=== PATIENT | female | born 1990 | race Two or more races ===

== ENCOUNTER 2024-10-22 01:31 | Emergency (ER) | payer MEDICAID, OTHER ==
[~2024-10-22] VITALS: Ht 160 cm; Wt 72.0 kg
[2024-10-22 02:38] LABS: Hematocrit 38.4 % (36.0-46.0); Hemoglobin 12.9 g/dL (12.2-16.2); Mean Corpuscular Hemoglobin 28.2 pg (28.0-32.0); Mean Corpuscular Volume 83.5 fL (80.0-100.0); Nucleated Red Blood Cells % 0.0 %
[2024-10-22 02:58] LABS: Alanine Aminotransferase 16 U/L (7-40); Albumin 4.3 g/dL (3.2-4.8); Alkaline Phosphatase 79 U/L (46-116); Anion Gap 9 (5-15); BUN/Creatinine Ratio 6.8 (10.0-20.0); Bilirubin, Total 0.4 mg/dL (0.2-1.0); Calcium 8.7 mg/dL (8.7-10.4); Carbon Dioxide 23 mmol/L (20-31); Chloride 106 mmol/L (98-107); Glucose 96 mg/dL (74-106); Potassium 3.6 mmol/L (3.5-5.1); Sodium 138 mmol/L (136-145); Total Protein 7.0 g/dL (5.7-8.2)
--- NOTE | 2024-10-22 03:01 | ED.PDOC ---
GI ASSESSMENT HPI Comments HPI: 34 year old female presents to the emergency department with a chief complaint of abdominal pain onset 2 hour prior to ED arrival. Patient states she has been experiencing RLQ pain, suprapubic pain, describes pain as constant, sharp and pressure sensation. Denies dysuria, hematuria, dizziness, nausea, vomiting, diar shiva, vaginal discharge, fevers, chills, nausea, vomiting, diarrhea. No other symptoms or modifying factors present at this time. Initial Vitals BP: 148/82 HR: 78 RR: 20 O2: 98% Temp: 98.3. F Past Medical History:Denies Past Surgical History: Social History: Denies ETOH, smoking, and drug use. Medications:Denies Allergies: JULIETTE VALVERDE: Jojo: HPI: Poor Historian. Past Medical History: Past Surgical History: REVIEW OF SYSTEMS: CONSTITUTIONAL: Denies acute: fever, diaphoresis, chills, generalized weakness HEAD: Denies acute: headache, photophobia Eyes: Denies acute: Double vision, vision loss, eye pain, eye discharge. EARS: Denies acute: tinnitus, hearing loss, ear discharge, ear pain, THROAT: Denies acute: sore throat, swelling, difficulty swallowing , pain with swallowing, change in voice. NECK: Denies acute: neck pain, neck swelling, stiff neck. HEART: Denies acute : chest pain, palpitations, LUNGS: Denies acute: SOB, wheezing, cough, hemoptysis ABDOMEN: Denies acute: Nausea, Vomiting, diarrhea, melena , hematemesis, hematochezia SKIN: Denies acute: rash, redness, lesions, itchiness. EXTREMITIES: Denies acute: calf pain, numbness, tingling, weakness, denies pain in extremity. Denies acute: Low back pain. Neuro: Denies acute: focal neurological deficit, motor or sensory focal neurological deficit, tremors, seizure like activity, confusion, dizziness, change in mental status, loss of bowel or bladder function, cauda equina like symptoms. : Denies acute: dysuria, hematuria, flank pain, increase in urinary frequency. PSYCH: Denies acute: hallucination, suicidal ideation, homicidal ideation. FEMALE: Denies acute: abnormal vaginal bleeding, foul odor, unusual discharge. PHYSICAL EXAM: General: ----idmh-af-invdaoad----acute distress, awake and alert. Head: normocephalic, atraumatic. Neck: supple, trachea is midline, no swelling. Throat: Normal phonation. Eyes:, no erythema, no purulent discharge, no proptosis, no icterus. Heart: regular rate, regular rhythm, no significant murmur appreciated. Lungs: no apparent respiratory distress, Able to speak in full sentences. No wheezing, no rhonchi, no crackles. No stridors Clear to auscultation bilaterally. Abdomen: Suprapubic and right lower quadrant tender to palpation, non distended, soft, no guarding, no rebound, + bowel sounds. Neuro: Awake, Alert, oriented to name, self, situation, follows commands GCS=15. Speech is normal. Skin: no petechia, no purpura, no cyanosis, non-pale, not jaundice. Lower extremities: --no - Pitting edema no deformity, no focal swelling, no calf TTP. Makes eye contact. moves all four extremities. Face: no apparent facial droop. Ambulating in the ED independently. ED COURSE: DISCLAIMER: This medical document was created using an electronic medical record system with voice recognition software and computerized dictation system. Although this document has been carefully reviewed, there might still be some phonetic and typographical errors. Occasional wrong-word or "sound-alike" substitutions may have occurred due to the inherent limitations of voice recognition software. These areas are purely typographical due to imperfections of the software programs and do not reflect any compromise in the patient's medical care. Please read the chart carefully and recognize, using context, where these substitutions have occurred. Chief Complaint: Abdominal Pain Time Seen by MD: 02:50 Reviewed Notes: Medications Allergies: Coded Allergies: NO KNOWN ALLERGIES (Unverified , 10/22/24) Home Meds Active Scripts Cephalexin Monohydrate (Cephalexin) 500 Mg Tab, 1 TAB PO TID for 7 Days, #21 TAB Prov:MARQUIS ANSARI DO 10/22/24 Information Source: Patient Mode of Arrival: Ambulatory Timing: Hours Duration: Since onset Prehospital treatment: None Quality: Sharp Vomitus: None Severity: Moderate Recent: None Recent Hx of: None Pain Location: RLQ, Suprapubic Modifying Factors: Nothing Associated sign and symptoms: Abdominal Pain Past Medical History PAST MEDICAL HISTORY: Denies Surgical History: [employer] History: No Pertinent [employer] History Family History Family History: Reviewed,noncontributory to illness, No family hx of Cancer, No family hx of DM, No family hx of Heart jesenia, No family hx of HTN, No family hx ofKidney jesenia, No family hx of Liver jesenia, No family hx of Lung jesenia, No family hx of Stroke Social History Smoker: Non-Smoker Alcohol: Denies ETOH Use Drugs: Denies Drug Use Lives In: Home Was a procedure done? Was a procedure done?: No X-Ray, Labs, Meds, VS Vital Signs Date Time Temp Pulse Resp B/P (MAP) Pulse Ox O2 Delivery O2 Flow Rate FiO2 10/22/24 06:14 98.2 64 16 109/73 (85) 100 98.2 10/22/24 04:06 98.2 67 16 100/62 (75) 98 98.2 10/22/24 01:33 98.3 78 20 148/82 98 98.3 Lab Test 10/22/24 02:23 10/22/24 02:07 Range/Units Urine Color Colorless Yellow Urine Clarity Turbid H Clear Urine pH 5.5 5.0-9.0 Urine Specific Datil 1.021 1.001-1.035 Urine Protein Trace H Negative Urine Ketones Negative Negative Urine Blood 2+ H Negative /uL Urine Nitrite Negative Negative Urine Bilirubin Negative Negative Urine Urobilinogen Normal Negative mg/dL Urine Leukocyte Esterase 3+ Negative /uL Urine RBC 6 0 - 4 /hpf Urine Microscopic WBC 20 H 0-5 /HPF Urine Squamous Epithelial Cells Many <5 /hpf Urine Bacteria None seen None Seen /hpf Urine Mucus Few None Seen Urine Glucose Normal Normal mg/dL Urine Test Negative Negative White Blood Count 11.9 H 4.4-10.8 10^3/uL Red Blood Count 4.59 4.0-5.20 10^6/uL Hemoglobin 12.9 12.2-16.2 g/dL Hematocrit 38.4 36.0-46.0 % Mean Corpuscular Volume 83.5 80.0-100.0 fL Mean Corpuscular Hemoglobin 28.2 28.0-32.0 pg Mean Corpuscular Hemoglobin Concent 33.7 32.0-36.0 g/dL Red Cell Distribution Width 13.6 11.8-14.3 % Platelet Count 277 140-450 10^3/uL Mean Platelet Volume 8.8 6.9-10.8 fL Neutrophils (%) (Auto) 63.6 37.0-80.0 % Lymphocytes (%) (Auto) 30.2 10.0-50.0 % Monocytes (%) (Auto) 4.5 0.0-12.0 % Eosinophils (%) (Auto) 1.2 0.0-7.0 % Basophils (%) (Auto) 0.5 0.0-2.0 % Neutrophils # (Auto) 7.6 1.6-8.6 10 ^3/uL Lymphocytes # (Auto) 3.6 0.4-5.4 10 ^3/uL Monocytes # (Auto) 0.5 0-1.3 10 ^3/uL Eosinophils # (Auto) 0.1 0-0.8 10 ^3/uL Basophils # (Auto) 0.1 0-0.2 10 ^3/uL Nucleated Red Blood Cells 0.0 % Sodium Level 138 136-145 mmol/L Potassium Level 3.6 3.5-5.1 mmol/L Chloride Level 106 98-107 mmol/L Carbon Dioxide Level 23 20-31 mmol/L Anion Gap 9 5-15 Blood Urea Nitrogen 5 L 9-23 mg/dL Creatinine 0.74 0.550-1.02 mg/dL Glomerular Filtration Rate Calc 108 >90 mL/min BUN/Creatinine Ratio 6.8 L 10.0-20.0 Serum Glucose 96 74-106 mg/dL Lactic Acid Level 0.9 0.4-2.0 mmol/L Calcium Level 8.7 8.7-10.4 mg/dL Total Bilirubin 0.4 0.2-1.0 mg/dL Aspartate Amino Transferase (AST) 15 13-40 U/L Alanine Aminotransferase (ALT) 16 7-40 U/L Alkaline Phosphatase 79 46-116 U/L Total Protein 7.0 5.7-8.2 g/dL Albumin 4.3 3.2-4.8 g/dL Current Medications Medications (Trade) Dose Ordered Sig/Terry Route Start Time Stop Time Status Last Admin Sodium Chloride 1,000 ml @ 1,000 mls/hr Q1H ONCE IV 10/22/24 02:00 10/22/24 02:59 DC 10/22/24 06:10 Acetaminophen/ Hydrocodone Bitart ([place] 5/325MG Tab) 1 tab ONCE ONCE PO 10/22/24 04:00 10/22/24 04:01 DC 10/22/24 06:10 Ceftriaxone Sodium 50 ml @ 100 mls/hr ONCE ONCE IV 10/22/24 05:30 10/22/24 05:59 DC 10/22/24 06:10 Ketorolac Tromethamine (Toradol Injection) 30 mg ONCE ONCE IV 10/22/24 06:00 10/22/24 06:06 DC 10/22/24 06:11 [place] [address] Ph: [phone] DIAGNOSTIC IMAGING Diagnostic Imaging Report : [id number] Signed PATIENT: JOJO VALVERDE ACCT: [id number] UNIT: [id number] : 1990 LOC: ER ROOM / BED: / AGE / SEX: 34 / F ADM STATUS: REG ER SERVICE 0158 ORDERING PHYSICIAN: MARQUIS ANSARI DO PROCEDURE(s): ABPL - CT AB PEL WO CON-NO ORAL OR IV REASON: pelvic pain ORDER NUMBER(s): [id number], ACCESSION NUMBER(s): [id number] Exam: CT CT AB PEL WO CON-NO ORAL OR IV History: pelvic pain Comparison Study: US PELVIC on DOS: 10/22/24 TECHNIQUE: Multidetector CT of the abdomen was performed from lung bases to pubic symphysis. Imaging was performed without IV contrast. Axial, coronal and sagittal multiplanar reformats were obtained from the axial data set by the technologist. Radiation Dose Information: Dose-length product is 448.57 mGy*cm FINDINGS: Limited sections of the lung bases demonstrate no focal pulmonary mass. The liver, spleen, pancreas, and both adrenal glands demonstrate no acute findings. The gallbladder is surgically removed The stomach is unremarkable. The small bowel loops are not dilated. The appendix is not clearly identified, although there are no secondary signs of appendicitis. No colonic obstruction. Bilateral kidneys are unremarkable. No hydronephrosis. The urinary bladder is partially distended. No significant lymphadenopathy. Scattered pelvic free fluid. No free air. Heterogenous, inflamed right adnexal mass measuring 6.4 x 5.1 cm may reflect a tubo-ovarian abscess versus hemorrhagic cyst. Simple cyst within the left ovary measuring 2.1 cm. IUD is noted in appropriate position. The aorta and IVC demonstrate no acute findings. Visualized osseous structures demonstrate no acute abnormality. IMPRESSION: 1. Heterogenous, inflamed right adnexal mass measuring 6.4 x 5.1 cm may reflect a tubo-ovarian abscess versus hemorrhagic cyst. Scattered pelvic free fluid. Together ruptured hemorrhagic cyst is highly considered. 2. IUD is noted in appropriate position. ATED BY: RUSS DAVIS MD DICTATED DATE/TIME: 10/22/24505 SIGNED BY: RUSS DAVIS MD SIGNED DATE/TIME: 10/22/24505 CC: [place] [address] Ph: [phone] DIAGNOSTIC IMAGING Diagnostic Imaging Report : [id number] Signed PATIENT: JOJO VALVERDE ACCT: [id number] UNIT: [id number] : 1990 LOC: ER ROOM / BED: / AGE / SEX: 34 / F ADM STATUS: REG ER SERVICE 0158 ORDERING PHYSICIAN: MARQUIS ANSARI DO PROCEDURE(s): PELUS - PELVIC REASON: pelvic pain ORDER NUMBER(s): [id number], ACCESSION NUMBER(s): [id number] INDICATION: pelvic pain TECHNIQUE: Multiple real-time grayscale transabdominal sonographic images along with color and duplex Doppler of the uterus and ovaries were obtained. COMPARISON: None FINDINGS: Uterus measures 11.8 x 7.7 x 5.0 cm. Endometrium measures 5.9 mm. IUD is noted within the uterus within the endometrial cavity in appropriate position. Free fluid is noted within the cul-de-sac. Right ovary measures 5.5 x 4.7 x 8.2 cm and left ovary measures 2.7 x 3.3 x 3.0 cm. Right ovarian complex cyst measuring 3.6 x 2.4 x 4.0 cm likely reflecting hemorrhagic cyst/ corpus luteal cyst. Left ovarian simple cyst measuring 1 x 1.0 x 1.3 cm. Normal vascular flow within bilateral ovaries. IMPRESSION: 1. IUD in appropriate position. 2. Right ovarian corpus luteal/ hemorrhagic cyst. 3. Left ovarian simple cyst. 4. no acute ovarian torsion at this time. ATED BY: RUSS DAVIS MD DICTATED DATE/TIME: 10/22/24338 SIGNED BY: RUSS DAVIS MD SIGNED DATE/TIME: 10/22/24338 CC: Time of 1ST Reevaluation: 03:20 Reevaluation 1ST: Unchanged Time of 2ND Reevaluation: 05:26 (The case was discussed with the [facility] on- call team (HPI, physical exam, labs and diagnostic tests that were available at the time of disposition, ED course, treatment plan) on the phone. They recommend outpatient follow up and pain control. No further intervention needed. I specifically communicated the CT scan findings of possible tubo- ovarian abscess versus hemorrhagic cyst. Dr. Trujillo. ) Patient Education/Counseling: Diagnosis, Treatment Family Education/Counseling: Diagnosis, Treatment Departure 1 Departure Time of Disposition: 03:57 Impression: Primary Impression: Hemorrhagic cyst of right ovary Additional Impression: UTI (urinary tract infection) Qualified Codes: N39.0 - Urinary tract infection, site not specified Disposition: HOME / SELF CARE / HOMELESS Condition: Stable Additional Instructions: Additional instructions: You MUST follow-up with your primary care/family doctor in 1 to 2 days. If you are unable to see your primary care/family doctor, please return to our emergency room for re-assessment and re-evaluation in 1 to 2 days. Return to the emergency room here in our facility or to the nearest ER [facility] if your symptoms change or worsen. CONSULTATIONS: you MUST Follow-up for consultation as soon as possible with: -[facility] doctor in 1-2 days. Please call for appointment You MUST call the consultants office yourself to make an appointment. You may need to arrange that through your insurance and/or your primary/family doctor. If you are unable to see the talent consultant in 1 to 2 days, you must return to our emergency room (or any other ER of your choice) for re-assessment and re- evaluation. Adequate fluid hydration. Absolute pelvic rest. Below is a copy of your radiological report for follow up: [facility] [address] [facility] [address] Ph: [phone] DIAGNOSTIC IMAGING Diagnostic Imaging Report : [id number] Signed PATIENT: JOJO VALVERDE ACCT: [id number] UNIT: [id number] : 1990 LOC: ER ROOM / BED: / AGE / SEX: 34 / F ADM STATUS: REG ER SERVICE 0158 ORDERING PHYSICIAN: MARQUIS ANSARI DO PROCEDURE(s): ABPL - CT AB PEL WO CON-NO ORAL OR IV REASON: pelvic pain ORDER NUMBER(s): [id number], ACCESSION NUMBER(s): [id number] Exam: CT CT AB PEL WO CON-NO ORAL OR IV History: pelvic pain Comparison Study: US PELVIC on DOS: 10/22/24 TECHNIQUE: Multidetector CT of the abdomen was performed from lung bases to pubic symphysis. Imaging was performed without IV contrast. Axial, coronal and sagittal multiplanar reformats were obtained from the axial data set by the technologist. Radiation Dose Information: Dose-length product is 448.57 mGy*cm FINDINGS: Limited sections of the lung bases demonstrate no focal pulmonary mass. The liver, spleen, pancreas, and both adrenal glands demonstrate no acute findings. The gallbladder is surgically removed The stomach is unremarkable. The small bowel loops are not dilated. The appendix is not clearly identified, although there are no secondary signs of appendicitis. No colonic obstruction. Bilateral kidneys are unremarkable. No hydronephrosis. The urinary bladder is partially distended. No significant lymphadenopathy. Scattered pelvic free fluid. No free air. Heterogenous, inflamed right adnexal mass measuring 6.4 x 5.1 cm may reflect a tubo-ovarian abscess versus hemorrhagic cyst. Simple cyst within the left ovary measuring 2.1 cm. IUD is noted in appropriate position. The aorta and IVC demonstrate no acute findings. Visualized osseous structures demonstrate no acute abnormality. IMPRESSION: 1. Heterogenous, inflamed right adnexal mass measuring 6.4 x 5.1 cm may reflect a tubo-ovarian abscess versus hemorrhagic cyst. Scattered pelvic free fluid. Together ruptured hemorrhagic cyst is highly considered. 2. IUD is noted in appropriate position. ATED BY: RUSS DAVIS MD DICTATED DATE/TIME: 10/22/24505 SIGNED BY: RUSS DAVIS MD SIGNED DATE/TIME: 10/22/24505 CC: [place] [address] Ph: [phone] DIAGNOSTIC IMAGING Diagnostic Imaging Report : [id number] Signed PATIENT: JOJO VALVERDE ACCT: [id number] UNIT: [id number] : 1990 LOC: ER ROOM / BED: / AGE / SEX: 34 / F ADM STATUS: REG ER SERVICE 7 ORDERING PHYSICIAN: MARQUIS ANSARI DO PROCEDURE(s): PELUS - PELVIC REASON: pelvic pain ORDER NUMBER(s): [id number], ACCESSION NUMBER(s): [id number] INDICATION: pelvic pain TECHNIQUE: Multiple real-time grayscale transabdominal sonographic images along with color and duplex Doppler of the uterus and ovaries were obtained. COMPARISON: None FINDINGS: Uterus measures 11.8 x 7.7 x 5.0 cm. Endometrium measures 5.9 mm. IUD is noted within the uterus within the endometrial cavity in appropriate position. Free fluid is noted within the cul-de-sac. Right ovary measures 5.5 x 4.7 x 8.2 cm and left ovary measures 2.7 x 3.3 x 3.0 cm. Right ovarian complex cyst measuring 3.6 x 2.4 x 4.0 cm likely reflecting hemorrhagic cyst/ corpus luteal cyst. Left ovarian simple cyst measuring 1 x 1.0 x 1.3 cm. Normal vascular flow within bilateral ovaries. IMPRESSION: 1. IUD in appropriate position. 2. Right ovarian corpus luteal/ hemorrhagic cyst. 3. Left ovarian simple cyst. 4. no acute ovarian torsion at this time. ATED BY: RUSS DAVIS MD DICTATED DATE/TIME: 10/22/24338 SIGNED BY: RUSS DAVIS MD SIGNED DATE/TIME: 10/22/24338 CC: e-Prescriptions Cephalexin Monohydrate (Cephalexin) 500 Mg Tab 1 TAB PO TID for 7 Days, #21 TAB Prov: LAKESHA ANSARICorwin Del Castillo DO 10/22/24 Discharged With: Self Critical Care Note Critical Care Time?: No I personally scribed for MARQUIS ANSARI DO ([email or web address]) on 10/22/24 at 03:01. Electronically submitted by Batool Howe ([email or web address]). I personally scribed for MARQUIS ANSARI DO ([email or web address]) on 10/22/24 at 03:05. Electronically submitted by Batool Howe ([email or web address]). I personally scribed for MARQUIS ANSARI DO ([email or web address]) on 10/22/24 at 05:13. Electronically submitted by Batool Howe ([email or web address]). I personally scribed for MARQUIS ANSARI DO ([email or web address]) on 10/22/24 at 05:17. Electronically submitted by Batool Howe ([email or web address]). I personally scribed for MARQUIS ANSARI DO ([email or web address]) on 10/22/24 at 05:18. Electronically submitted by Batool Howe ([email or web address]). I personally scribed for MARQUIS ANSARI DO ([email or web address]) on 10/22/24 at 06:01. Electronically submitted by Batool Howe ([email or web address]). MARQUIS ANSARI DO Oct 22, 2024 03:01
[2024-10-22 03:02] LABS: Blood Urea Nitrogen 5 mg/dL (9-23)
--- NOTE | 2024-10-22 03:42 | DVH ---
INDICATION: pelvic pain TECHNIQUE: Multiple real-time grayscale transabdominal sonographic images along with color and duplex Doppler of the uterus and ovaries were obtained. COMPARISON: None FINDINGS: Uterus measures 11.8 x 7.7 x 5.0 cm. Endometrium measures 5.9 mm. IUD is noted within the uterus wit hin the endometrial cavity in appropriate position. Free fluid is noted within the cul-de-sac. Right ovary measures 5.5 x 4.7 x 8.2 cm and left ovary measures 2.7 x 3.3 x 3.0 cm. Right ovarian com plex cyst measuring 3.6 x 2.4 x 4.0 cm likely reflecting hemorrhagic cyst/ corpus luteal cyst. Left o varian simple cyst measuring 1 x 1.0 x 1.3 cm. Normal vascular flow within bilateral ovaries. IMPRESSION: 1. IUD in appropriate position. 2. Right ovarian corpus luteal/ hemorrhagic cyst. 3. Left ovarian simple cyst. 4. no acute ovarian torsion at this time.
[2024-10-22 05:05] LABS: Urine Protein, UAD TRACE (Negative)
--- NOTE | 2024-10-22 05:09 | DVH ---
Exam: CT CT AB PEL WO CON-NO ORAL OR IV History: pelvic pain Comparison Study: US PELVIC on DOS: 10/22/24 TECHNIQUE: Multidetector CT of the abdomen was performed from lung bases to pubic symphysis. Imaging was performed without IV contrast. Axial, coronal and sagittal multiplanar reformats were obtained fr om the axial data set by the technologist. Radiation Dose Information: Dose-length product is 448.57 mGy*cm FINDINGS: Limited sections of the lung bases demonstrate no focal pulmonary mass. The liver, spleen, pancreas, and both adrenal glands demonstrate no acute findings. The gallbladder is surgically removed The stomach is unremarkable. The small bowel loops are not dilated. The appendix is not clearly identified, although there are no secondary signs of appendicitis. No colonic obstruction. Bilateral kidneys are unremarkable. No hydronephrosis. The urinary bladder is partially distended. No significant lymphadenopathy. Scattered pelvic free fluid. No free air. Heterogenous, inflamed right adnexal mass measuring 6.4 x 5.1 cm may reflect a tubo-ovarian abscess v ersus hemorrhagic cyst. Simple cyst within the left ovary measuring 2.1 cm. IUD is noted in appropriate position. The aorta and IVC demonstrate no acute findings. Visualized osseous structures demonstrate no acute abnormality. IMPRESSION: 1. Heterogenous, inflamed right adnexal mass measuring 6.4 x 5.1 cm may reflect a tubo-ovarian absces s versus hemorrhagic cyst. Scattered pelvic free fluid. Together ruptured hemorrhagic cyst is highly considered. 2. IUD is noted in appropriate position.
[2024-10-22] MEDS ORDERED: CEPH500T PO (05:28)
[2024-10-22] MEDS: SODIUM CHLORIDE 0.9% 1,000 ML IV ONE (06:10)
[2024-10-22] MEDS: HYDROcodone-ACET 5/325MG TAB PO ONE (06:10)
[2024-10-22] MEDS: cefTRIAXone 1GM/50ML D5W 50 ML IV ONE (06:10)
[2024-10-22] MEDS: KETOROLAC TROMETH 30 MG/ML 1ML VIAL IV ONE (06:11)
[2024-10-22 06:14] VITALS: TEMP 98.2
[2024-10-22 07:35] VITALS: BP 97/59; PULSE 60; RESP 19; O2SAT 99
== END 2024-10-22 07:42 | disposition home or self-care (01) ==
LOC: ER 01:31
DX: N83.201 Unspecified ovarian cyst, right side (principal); N39.0 Urinary tract infection, site not specified; Z79.899 Other long term (current) drug therapy
CPT/HCPCS: 36415; 74176; 76856; 80053; 81001; 81025; 83605; 85025; 96365; 96366; 96375; 99285; J0696; J1885

== ENCOUNTER 2024-10-25 09:53 | Emergency (ER) | payer MEDICAID ==
[~2024-10-25] VITALS: Ht 160 cm; Wt 72.0 kg
[~2024-10-25 09:53] MED LIST: CEPH500T PO
--- NOTE | 2024-10-25 10:19 | ED.PDOC ---
History of Present Illness HPI Comments This 34-year-old female with a known right-sided ovarian hemorrhagic cyst presents secondary to spotting that began this morning. She continues to have right-sided abdominal pain with minimal right flank discomfort. She has no other complaints such as headaches, vision changes, chest pain, shortness of breath, nausea, vomiting diarrhea, dysuria urinary frequency. Denies any palliative provocative factors such as increased pain with ambulation or palpation. Denies modifying factors. Denies radiation except as mentioned above. 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 History Family History Family History: Reviewed,noncontributory to illness, No family hx of Cancer, No family hx of DM, No family hx of Heart jesenia, No family hx of HTN, No family hx ofKidney jesenia, No family hx of Liver jesenia, No family hx of Lung jesenia, No family hx of Stroke Social History Smoker: Non-Smoker Alcohol: Denies ETOH Use Drugs: Denies Drug Use Lives In: Home Constitutional: denies: chills, diaphoresis, fatigue, fever, malaise, sweats, weakness, others EENTM: denies: blurred vision, double vision, ear bleeding, ear discharge, ear drainage, ear pain, ear ringing, eye pain, eye redness, hearing loss, mouth pain, mouth swelling, nasal discharge, nose bleeding, nose congestion, nose pain, photophobia, tearing, throat pain, throat swelling, voice changes, others Respiratory: denies: cough, hemoptysis, orthopnea, SOB at rest, shortness of breath, SOB with excertion, stridor, wheezing, others Cardiovascular: denies: chest pain, dizzy spells, diaphoresis, Dyspnea on exertion, edema, irregular heart beat, left arm pain, lightheadedness, palpitations, PND, syncope, others Gastrointestinal: reports: abdominal pain; denies: abdomen distended, blood streaked bowels, constipated, diarrhea, dysphagia, difficulty swallowing, hematemesis, melena, nausea, poor appetite, poor fluid intake, rectal bleeding, rectal pain, vomiting, others Genitourinary: reports: abnormal vagina bleeding; denies: burning, dyspareunia, dysuria, flank pain, frequency, hematuria, incontinence, pain, , vagina discharge, urgency, others Neurological: denies: dizziness, fainting, headache, left sided numbness, left sided weakness, numbness, paresthesia, pre-existing deficit, right sided numbness, right sided weakness, seizure, speech problems, tingling, tremors, weakness, others Musculoskeletal: denies: back pain, gout, joint pain, joint swelling, muscle pain, muscle stiffness, neck pain, others Integumetry: denies: bruises, change in color, change in hair/nails, dryness, laceration, lesions, lumps, rash, wounds, others Allergic/Immunocompromised: denies: Difficulty Healing, Frequent Infections, Hives, Itching, others Hematologic/Lymphatic: denies: anemia, blood clots, easy bleeding, easy bruising, swollen glands, others Endocrine: denies: excessive hunger, excessive sweating, excessive thirst, excessive urination, flushing, intolerance to cold, intolerance to heat, unexplained weight gain, unexplained weight loss, others Psychiatric: denies: anxiety, depression Physical Exam General Appearance: No Apparent Distress, Normal HEENT: Head (normal), Normal ENT Inspection, Pharynx Normal Neck: Full Range of Motion, Non-Tender, Normal, Normal Inspection Respiratory: Chest Non-Tender, Lungs Clear, No Accessory Muscle Use, No Respiratory Distress, Normal Breath Sounds Cardiovascular: No Edema, No Murmur, No Gallop, Normal Peripheral Pulses, Regular Rate/Rhythm Breast Exam: Deferred Gastrointestinal: No Organomegaly, Non Tender, Normal Bowel Sounds, Soft Genitalia: Deferred Pelvic: Deferred Rectal: Deferred Extremities: No calf tenderness, No pedal edema Neurologic: Alert, repairer general II-XII nml as Tested, No Motor Deficits, Normal Affect, Normal Mood, No Sensory Deficits Cerebellar Function: NOT DONE Reflexes: NOT DONE Skin: Dry, Normal Color, Warm Lymphatic: NOT DONE Was a procedure done? Was a procedure done?: No Differential Dx Considerations may include: Acute cystitis, appendicitis, ovarian torsion, ovarian cyst, pyelonephritis X-Ray, Labs, Meds, VS Vital Signs Date Time Temp Pulse Resp B/P (MAP) Pulse Ox O2 Delivery O2 Flow Rate FiO2 10/25/24 10:33 64 18 98 Room Air* 0 21 10/25/24 10:31 99.1 68 18 108/49 (68) 98 99.1 10/25/24 09:55 98.0 68 16 106/68 96 98.0 Lab Test 10/25/24 10:46 Range/Units White Blood Count 7.9 # 4.4-10.8 10^3/uL Red Blood Count 4.63 4.0-5.20 10^6/uL Hemoglobin 13.1 12.2-16.2 g/dL Hematocrit 38.7 36.0-46.0 % Mean Corpuscular Volume 83.6 80.0-100.0 fL Mean Corpuscular Hemoglobin 28.2 28.0-32.0 pg Mean Corpuscular Hemoglobin Concent 33.8 32.0-36.0 g/dL Red Cell Distribution Width 13.5 11.8-14.3 % Platelet Count 277 140-450 10^3/uL Mean Platelet Volume 9.1 6.9-10.8 fL Neutrophils (%) (Auto) 63.1 37.0-80.0 % Lymphocytes (%) (Auto) 29.8 10.0-50.0 % Monocytes (%) (Auto) 5.4 0.0-12.0 % Eosinophils (%) (Auto) 1.1 0.0-7.0 % Basophils (%) (Auto) 0.6 0.0-2.0 % Neutrophils # (Auto) 5.0 1.6-8.6 10 ^3/uL Lymphocytes # (Auto) 2.4 0.4-5.4 10 ^3/uL Monocytes # (Auto) 0.4 0-1.3 10 ^3/uL Eosinophils # (Auto) 0.1 0-0.8 10 ^3/uL Basophils # (Auto) 0 0-0.2 10 ^3/uL Nucleated Red Blood Cells 0.2 % Sodium Level 140 136-145 mmol/L Potassium Level 4.0 3.5-5.1 mmol/L Chloride Level 108 H 98-107 mmol/L Carbon Dioxide Level 23 20-31 mmol/L Anion Gap 9 5-15 Blood Urea Nitrogen < 5 L 9-23 mg/dL Creatinine 0.65 0.550-1.02 mg/dL Glomerular Filtration Rate Calc 118 >90 mL/min BUN/Creatinine Ratio 7.7 L 10.0-20.0 Serum Glucose 87 74-106 mg/dL Calcium Level 8.8 8.7-10.4 mg/dL Total Bilirubin 0.5 0.2-1.0 mg/dL Aspartate Amino Transferase (AST) 15 13-40 U/L Alanine Aminotransferase (ALT) 16 7-40 U/L Alkaline Phosphatase 75 46-116 U/L Total Protein 7.2 5.7-8.2 g/dL Albumin 4.4 3.2-4.8 g/dL Beta HCG, Quantitative < 1.5 L 1.5-4.2 mIU/mL X-Ray, Labs, Meds, VS Comment This 34-year-old female presents secondary continued right-sided abdominal and flank pain. She had a known hemorrhagic ovarian cyst. She is noted to have spotting and presented here. Here, workup was benign. She continues to have a hemorrhagic cyst. The patient has a previous stool with a follow up with OBGYN as an outpatient as well as her PCP. As she is completely stable and there is no changes, I will discharge her home. Again, she is asked to follow up with the PCP and OBGYN as soon as possible. She states her understanding. Patient will require interval imaging. Time of 1ST Reevaluation: 13:15 Reevaluation 1ST: Unchanged Patient Education/Counseling: Diagnosis, Treatment, Prognosis, Need For Follow Up Family Education/Counseling: No Family Present SEPSIS Sepsis Screen Date sepsis recognized/suspect: Oct 25, 2024 Time Sepsis recognized/suspect: 954 Recent Procedure: No On Antibiotic Therapy: Yes Respiratory Rate >20: No Heart Rate >90: No Temp<36 C (96.8 F) or >38.3 C: No SBP <90 or MAP <65 mmHG: No New Acute Mental Status Change: No Is the patient on CPAP, BIPAP,: No Physician Orders Pelvic (10/25/24 10:05) Ct Ab Pel Wo Con-No Oral Or Iv (10/25/24 10:05) Urinalysis (10/25/24 12:20) Straight Cath Patient (10/25/24 12:20) Vital Signs Date Time Temp Pulse Resp B/P (MAP) Pulse Ox O2 Delivery O2 Flow Rate FiO2 10/25/24 10:33 64 18 98 Room Air* 0 21 10/25/24 10:31 99.1 68 18 108/49 (68) 98 99.1 10/25/24 09:55 98.0 68 16 106/68 96 98.0 Laboratory Tests Test 10/25/24 10:46 White Blood Count 7.9 10^3/uL (4.4-10.8) # Departure 1 Departure Time of Disposition: 13:16 Impression: Primary Impression: Hemorrhagic cyst of right ovary Additional Impression: UTI (urinary tract infection) Disposition: 01 HOME / SELF CARE / HOMELESS Condition: Good Discharged With: Self Critical Care Note Critical Care Time?: No Stability Stability form required: No Heart Score Heart Score: Heart Score Response (Comments) Value History N/A 0 EKG N/A 0 Age N/A 0 Risk Factors N/A 0 Troponin N/A 0 Total 0 ROLANDO PASTOR MD Oct 25, 2024 10:19
[2024-10-25 10:31] VITALS: BP 108/49; TEMP 99.1
[2024-10-25 10:33] VITALS: PULSE 64; RESP 18; O2SAT 98
[2024-10-25 11:36] LABS: Hematocrit 38.7 % (36.0-46.0); Hemoglobin 13.1 g/dL (12.2-16.2); Mean Corpuscular Hemoglobin 28.2 pg (28.0-32.0); Mean Corpuscular Volume 83.6 fL (80.0-100.0); Nucleated Red Blood Cells % 0.2 %
[2024-10-25 11:50] LABS: Alanine Aminotransferase 16 U/L (7-40); Albumin 4.4 g/dL (3.2-4.8); Alkaline Phosphatase 75 U/L (46-116); Anion Gap 9 (5-15); BUN/Creatinine Ratio 7.7 (10.0-20.0); Bilirubin, Total 0.5 mg/dL (0.2-1.0); Blood Urea Nitrogen < 5 mg/dL (9-23); Calcium 8.8 mg/dL (8.7-10.4); Carbon Dioxide 23 mmol/L (20-31); Chloride 108 mmol/L (98-107); Glucose 87 mg/dL (74-106); Potassium 4.0 mmol/L (3.5-5.1); Sodium 140 mmol/L (136-145); Total Protein 7.2 g/dL (5.7-8.2)
--- NOTE | 2024-10-25 12:03 | DVH ---
INDICATION: RLQ pain hx of hemorrhagic cyst TECHNIQUE: Multiple real-time grayscale transabdominal and transvaginal sonographic images along with color and duplex Doppler of the uterus and ovaries were obtained. COMPARISON: US PELVIC on DOS: 10/22/24 FINDINGS: The uterus measures 11.5 x 7.6 x 5.5 cm. The endometrial stripe measures 0.4 cm. Right ovary measures 5.6 x 5.0 x 4.4 cm with normal Doppler color flow. Grossly unchanged right ovar dada cyst measuring 2.8 cm and probable right ovarian hemorrhagic cyst measuring 4.3 cm. Left ovary measures 4.0 x 3.0 x 1.8 cm with normal Doppler color flow. Left ovarian cyst measures 1. 7 cm. IMPRESSION: Grossly unchanged right ovarian cyst measuring 2.8 cm and probable right ovarian hemorrhagic cyst quinn suring 4.3 cm. Recommend repeat ultrasound in 6 weeks.
--- NOTE | 2024-10-25 12:49 | DVH ---
Exam: CT CT AB PEL WO CON-NO ORAL OR IV History: abd pain Comparison Study: US PELVIC on DOS: 10/25/24, CT CT AB PEL WO CON-NO ORAL OR IV on DOS: 10/22/24, US PE LVIC on DOS: 10/22/24 Technique: Multidetector spiral CT of the abdomen was performed from lung bases to pubic symphysis. Imaging was performed without IV contrast. Axial, coronal and sagittal multiplanar reformats were ob tained from the axial data set by the technologist. Radiation Dose : 1. Abdomen/Pelvis: CTDIvol 10.8 mGy, DLP 587.06 mGy*cm. Findings: Evaluation of solid organs is limited due to lack of intravenous contrast use. Lung Bases: No acute or significant lung base finding. Normal heart size. No pleural or pericardial effusion. Liver: The liver is normal in size. No focal lesions. Gallbladder and Biliary Tree: Gallbladder is surgically absent. Spleen: Unremarkable Pancreas: The pancreas is grossly normal in appearance. Adrenal Glands: Unremarkable Kidneys: Kidneys are grossly normal without calculi or hydronephrosis. Bladder: Grossly unremarkable for degree of distention. Bowel: The stomach is grossly normal in appearance. Small bowel and colon are normal in caliber and d istribution. The appendix is not visualized; however, no secondary findings of acute appendicitis id entified. Ascites: Absent Lymphadenopathy: No mesenteric, retroperitoneal or periportal lymphadenopathy. Abdominal Wall and Mesentery: Unremarkable. Vasculature: The visualized abdominal aorta is normal in size and caliber. Evaluation of abdominal a nd pelvic vessels is limited due to lack of intravenous contrast. Pelvic Organs: Heterogeneous cystic lesion is seen in the right ovary measuring up to 5.5 cm. Musculoskeletal: No aggressive focal bony lesions, acute fractures or dislocation. IMPRESSION: 1. No acute abdominal or pelvic findings. 2. Complex right ovarian cyst is seen measuring up to 5.5 cm Radiation optimization: All CT scans at this facility use at least one of these dose optimization agusto hniques: automated exposure control mA and/or kV adjustment per patient size (includes targeted exam s where dose is matched to clinical indication) or iterative reconstruction.
[2024-10-25 13:59] LABS: Urine Protein, UAD Negative (Negative)
== END 2024-10-25 13:30 | disposition home or self-care (01) ==
LOC: ER 09:53
DX: N39.0 Urinary tract infection, site not specified (principal); N83.201 Unspecified ovarian cyst, right side; Z79.899 Other long term (current) drug therapy; Z98.890 Other specified postprocedural states
CPT/HCPCS: 36415; 74176; 76830; 76856; 80053; 81001; 84702; 85025